=== PATIENT | female | born 1935 ===

== ENCOUNTER 2025-06-26 14:19 | Outpatient (AMB) | payer OTHER, SELFPAY ==
--- NOTE | 2025-06-26 14:23 | A.PHYSOV_ITS ---
Vital Signs 06/26/25 14:25 Height 5 ft 4 in Weight 120 lb BMI 20.6 Intake Visit Reasons: 3M FUV Intake Note: Patient is an 89 year old female here for medication follow up. Presents today with persistent hip pain. Supervisor Treating And Pumping Required: No Supervisor Treating And Pumping Services: Supervisor Treating And Pumping Offered & Declined Supervisor Treating And Pumping Name: Patient here with son wandy Accompanied by: Child Allergies shellfish derived (shellfish) Allergy (Unknown, Verified 06/26/25 14:21) Unknown HPI Comments Details: History of Present Illness The patient is an 89-year-old female presenting with right-sided hip and leg pain. The pain is persistent and severe, affecting the entire leg and back, and is not alleviated by current medication. She has contracted for tramadol. The pain impacts her mobility, causing discomfort when moving her leg or bending her back. The patient has a history of hip arthritis, potentially contributing to her symptoms. Previous interventions, including medication and injections, have not provided relief. Patient has undergone epidural injection without any relief of her symptoms. Patient is finding 3 tramadol 50 mg per day not to be helpful. Procedure: Bilateral L4 TFE the 03/11/2017 Left L4 TFE 01/20/2018 Bilateral L4 TFE Right L4 TFE 10/31/2022 Pain Description - Onset and Timing: Persistent pain in the right hip and leg - Quality and Character: Severe pain not relieved by medication - Primary Location: Right hip and leg - Areas of Radiation: Pain extends to the back - Exacerbating Factors: Movement of the leg and bending of the back Results - Imaging: X-ray hips 10/16/2022 impression: Interval progression of degenerative changes in the hips. X-ray lumbar spine 01/13/2017 impression: Diffuse degenerative changes. MRI lumbar spine without contrast 02/21/2017 impression: Multilevel degenerative disc disease with central and foraminal stenosis at L1-2 through L4-5 levels most severely involving the L4-5 level. [facility] Social History (Updated 06/26/25 @ 14:28 by Shruthi Munoz MA) Alcohol intake: current Alcohol intake frequency: does not drink Review of Systems Narrative Review of Systems - Musculoskeletal: Reports severe pain in right hip and leg, affecting mobility - Neurological: Denies any numbness or tingling Physical Exam Exam Exam: Physical Exam -Lumbar Spine: Examination of her lumbar spine, there is no visible swelling or deformity. She has tenderness lower lumbar facets. She has limited range of motion of lumbar spine secondary to pain. Special Tests: Lhermittes sign was negative Heel Toe walk is normal Left straight leg raise: Negative Right straight leg raise: Right Special tests Richard test is negative Ganslen's test is negative SI Joint compression test negative Luis test negative Piriformis stretch is negative Lower Extremities: Mild decrease in range of motion in external rotation and abduction of her right hip. Range of motion her symptoms. Neuro: Sensation: Intact to lower extremities bilaterally Strength L2 (Psoas): 5/5 on the left and 5/5 on the right. L3 (Quads): 5/5 on the left and 5/5 on the right. L4 (Ant tibialis): 5/5 on the left and 5/5 on the right. L5 (EHL) 5/5 on the left and 5/5 on the right. S1 (Gastroc): 5/5 on the left and 5/5 on the right. DTR L4: (Patellar) Left 1 Right 1 S1: (Achilles) Left 1 Right 1 Babinski Downgoing No pathologic clonus. No involuntary movement. Vital Signs: BMI result Body Mass Index 20.6 Assessment & Plan Assessment & Plan (1) Trochanteric bursitis, right hip: Code(s): M70.61 - Trochanteric bursitis, right hip Category: Medical (2) Osteoarthritis of right hip: Code(s): M16.11 - Unilateral primary osteoarthritis, right hip Category: Medical Qualifiers: Osteoarthritis type: primary Qualified Code(s): M16.11 - Unilateral primary osteoarthritis, right hip (3) Lumbar radiculopathy: Code(s): M54.16 - Radiculopathy, lumbar region Category: Medical Plan Pain Management - Affect: Pain significantly impacts mobility and daily activities - Analgesia: Current medication ineffective; considering switch to Percocet - Adverse Effects: None reported - Activities of Daily Living: Pain limits movement and comfort - Aberrant Drug Related Behaviors: None reported Plan Patient was informed and verbally consented to the use of an ambient scribe for clinic note documentation during this visit. 1. Hip Arthritis The patient will continue with current medication until the next refill, at which point a switch to Percocet is planned to better manage pain. An X-ray of the right hip is scheduled to evaluate for any underlying issues contributing to the pain. Patient does have possible compression of the right L3, L4 nerve roots but has not found relief by epidural injection. We will consider intra- articular injection of her right hip once we are able to view the x-ray. We discussed the benefits of proper nutrition and exercise to maintain a healthy body weight to improve longevity and function. We also discussed the benefits of proper lifting techniques, core strengthening and proper posture. Patient will follow-up in 3 months for contracture agreement. Thank you for allowing me to participate in the care of your patient. Orders: Orders XR hip RT min 2V Today M16.10 - Unilateral primary osteoarthritis, unspecified hip Coding Level of Care Code Tele Est Pt Level 3 (43970) Diagnoses Trochanteric bursitis, right hip M70.61 Primary osteoarthritis of right hip M16.11 Osteoarthritis type: primary Lumbar radiculopathy M54.16
[2025-06-26 14:25] VITALS: BMI 20.6
--- OUTSIDE RECORDS SUMMARY | 2025-06-27 04:14 | XMS_ITS | Clinical Summary ---
Author Organization [facility] Address [address] [place] [address] Care Team Providers Care Pastor Name Role Phone Sp Bowser MD Primary Care Provider [phone] Allergies No known active allergies Medications Medication Sig Dispensed Refills Start Date End Date Status metoprolol succinate (TOPROL-XL) 24 hr tablet 50 mg Take 50 mg by mouth daily. 0 Active enalapril (VASOTEC) 20 MG tablet Take 20 mg by mouth daily. 0 Active gabapentin (NEURONTIN) 300 MG capsule Take 300 mg by mouth 3 (three) times a day. 0 Active hydroCHLOROthiazide (HYDRODIURIL) tablet 25 mg Take 25 mg by mouth daily. 0 Active atorvastatin (LIPITOR) tablet 10 mg Take 10 mg by mouth every evening. 0 Active amLODIPine (NORVASC) tablet 2.5 mg Take 2.5 mg by mouth daily. 0 Active SUMAtriptan (IMITREX) 25 MG tablet Take 25 mg by mouth every 2 (two) hours as needed for migraine. 0 Active acetaminophen (TYLENOL) 325 MG tablet Take 650 mg by mouth every 6 (six) hours as needed for pain. 0 Active clotrimazole-betamet hasone (LOTRISONE) cream Apply topically 2 (two) times a day. 0 Active albuterol (PROVENTIL) (2.5 MG/3ML) 0.083% nebulizer solution Take 2.5 mg by nebulization every 6 (six) hours as needed for wheezing. 0 Active conjugated estrogens (PREMARIN) vaginal cream Place vaginally daily. 0 Active sodium polystyrene (KAYEXALATE) 15 GM/60ML suspension Take 15 g by mouth once. 0 Active albuterol 108 (90 Base) MCG/ACT inhaler Inhale 2 puffs into the lungs every 6 (six) hours as needed for wheezing. 0 Active allopurinol (ZYLOPRIM) 100 MG tablet Take 100 mg by mouth daily. 0 Active Insulin Glargine Solostar 100 UNIT/ML SOPN Inject under the skin. 0 Active Loratadine 10 MG CAPS Take by mouth. 0 Active fluticasone (FLONASE) 50 MCG/ACT nasal spray spray/apply 1 spray in each nostril daily. 0 Active mupirocin (BACTROBAN) 2 % ointment Apply topically 3 (three) times a day. 0 Active budesonide-formotero l (SYMBICORT) 80-4.5 MCG/ACT inhaler Inhale 2 puffs into the lungs 2 (two) times a day. 0 Active Triamcinolone Acetonide 55 MCG/ACT AERO spray or apply inside Nose. 0 Active Active Problems Problem Noted Date Diagnosed Date Other specified anemias 05/20/2022 Social History Tobacco Use Types Packs/Day Years Used Date Smoking Tobacco: Never Smokeless Tobacco: Never Alcohol Use Standard Drinks/Week Comments Never 0 (1 standard drink = 0.6 oz pur e alcohol) Sex and Gender Information Value Date Recorded Sex Assigned at Not on file Gender Identity Not on file Sexual Orientation Not on file Job Start Date Occupation Industry Not on file Not on file Not on file Last Filed Vital Signs Vital Sign Reading Time Taken Comments Blood Pressure 142/76 06/16/2022 10:50 AM EST Pulse 80 06/16/2022 10:50 AM EST Temperature 36.4 C (97.5 F) 06/16/2022 10:50 AM EST Respiratory Rate - - Oxygen Saturation 98% 06/16/2022 10:50 AM EST Inhaled Oxygen Concentration - - Weight 64.4 kg (142 lb) 06/16/2022 10:50 AM EST Height - - Body Mass Index - - Plan of Treatment Health Maintenance Due Date Last Done Comments Depression Screening 1949 Preventative Health Evaluation 1955 Shingrix-Zoster Vaccine (1 of 2) 1987 Fall Risk Assessment 2002 Osteoporosis Screening (DEXA Scan) 2002 RSV Adult > 60+ Yrs or (1 - 1-dose 75+ series) 2012 COVID-19 Vaccine (3 - season) 2025 10/09/2020, 09/18/2020 Influenza Vaccine (#1) 2025 , 05/02/2020, 04/28/2019, Additional history exists DTap / Tdap / Td (2 - Td or Tdap) 11/03/2028 11/03/2018 Pneumococcal Vaccine Completed 05/13/2018, 03/19/20 17 Hepatitis B Vaccines Aged Out No long er eligible based on patient's age to complete this topic RSV Ped < 20 months Aged Out No longe r eligible based on patient's age to complete this topic Care Teams Pastor Relationship Specialty Start Date End Date Sp Bowser MD [address] [place] [id number] PCP - General Internal Medicine 12/18/21
== END 2025-06-26 14:42 | disposition home or self-care (01) ==
LOC: HO.HPHYS 14:19
PROVIDERS: PCP Internal Medicine; Visit Provider Physician Assistant
DX: M70.61 Trochanteric bursitis, right hip (principal); M16.11 Unilateral primary osteoarthritis, right hip; M54.16 Radiculopathy, lumbar region
CPT/HCPCS: 99213

== ENCOUNTER → 2025-06-26 14:19 | Outpatient (BNVA) | payer OTHER, SELFPAY | PROVIDERS: PCP Internal Medicine; Visit Provider Physician Assistant | DX: M70.61 Trochanteric bursitis, right hip (principal); M16.11 Unilateral primary osteoarthritis, right hip; M54.16 Radiculopathy, lumbar region | CPT/HCPCS: 99212 ==